=== PATIENT | female | born 1985 | race Caucasian/White ===

== ENCOUNTER 2018-11-27 16:09 | Emergency (ER) | payer OTHER ==
[~2018-11-27] VITALS: Ht 175.3 cm; Wt 84.1 kg
[~2018-11-27 16:09] MED LIST: MOTRIN600 MG PO; PERCOCET 5/3251 TA1 PO; PRENATAL COMPLE1 TAB PO
[2018-11-27 16:25] VITALS: Ht 175.3 cm; Wt 84.1 kg
[2018-11-27 18:25] VITALS: BP 118/85
== END 2018-11-27 18:25 | disposition home or self-care (01) ==
LOC: D.ER 16:09
DX: R20.2 Paresthesia of skin (principal)